=== PATIENT | female | born 1960 | race Hispanic/Latino ===

== ENCOUNTER 2017-06-24 09:55 | Emergency (ER) | payer OTHER ==
[~2017-06-24] VITALS: Ht 152.4 cm; Wt 78.0 kg
[2017-06-24] MEDS ORDERED: ACETAMINOPHEN 325 MG TAB PO ONE (10:30)
[2017-06-24] MEDS ORDERED: DEXAMETHASONE SOD PHOS 10 MG/1 ML VIAL INJ ONE (10:30)
--- NOTE | 2017-06-24 11:20 | Diagnostic Imaging Report ---
PROCEDURE: Frontal and lateral views of the chest. COMPARISON: None. INDICATIONS: COUGH, FEVER FINDINGS: Lines/tubes: None. Lungs: The lungs are well inflated and clear. There is no evidence of pneumonia or pulmonary edema. Pleura: There is no pleural effusion or pneumothorax. Heart and mediastinum: The heart and the mediastinum are normal. Bones: No acute bony abnormality. Degenerative changes of the thoracic spine. IMPRESSION: No acute radiographic abnormality. Dictated by: Ranjit Michaud M.D. on 06/24/2017 at 11:28 Electronically approved by: Ranjit Michaud M.D. on 06/24/2017 at 11:28
[2017-06-24] MEDS ORDERED: CEFTRIAXONE SOD 1 GM VIAL IM ONE (13:00)
== END 2017-06-24 14:32 | disposition home or self-care (01) ==
LOC: ER 09:55
DX: R50.9 Fever, unspecified (principal); R05 Cough; R06.00 Dyspnea, unspecified; J20.8 Acute bronchitis due to other specified organisms; F17.210 Nicotine dependence, cigarettes, uncomplicated
CPT/HCPCS: 71020; 99283; J0696; J1100

== ENCOUNTER → 2021-05-17 | Outpatient (CLI) | payer OTHER | LOC: RAD 10:19 | PROVIDERS: ATTEND Family Medicine | DX: J45.901 Unspecified asthma with (acute) exacerbation (principal) | CPT/HCPCS: 71046 ==